=== PATIENT | male | born 1960 ===

== ENCOUNTER 2022-05-05 13:40 | Emergency (ER) | payer MEDICARE, MEDICAID, OTHER ==
[2022-05-05] MEDS ORDERED: Sodium Chloride 0.9% 10 ML Syringe FLUSH PRN (13:54)
[2022-05-05] MEDS ORDERED: Sodium Chloride 0.9% 1,000 ML IV ONE (14:45)
[2022-05-05 17:56] LABS: CHLORIDE,CL 102 mmol/L (98-107); SODIUM,NA 138 mmol/L (136-145)
[2022-05-05 17:58] LABS: ESTIMATED GFR 63 mL/min (>=60)
[2022-05-05 18:01] LABS: ANION GAP 16.5 mEq/L (7-13)
== END 2022-05-05 17:06 | disposition home or self-care (01) ==
LOC: DL.ED 13:40
DX: R42 Dizziness and giddiness (principal); E86.0 Dehydration
CPT/HCPCS: 36415; 70450; 80053; 81001; 83735; 84484; 85025; 86140; 99284; J7030; U0002; 93010; 99283

== ENCOUNTER 2023-10-11 06:06 | Day surgery (SDC) | payer MEDICAID, MEDICARE ==
[~2023-10-11 06:06] MED LIST: Dextrose 5%-0.45% NaCl 1,000 ML IV SCH
[2023-10-11] MEDS ORDERED: fentaNYL 100 MCG/2 ML SDV ONE (06:15)
[2023-10-11] MEDS ORDERED: Midazolam 1 MG/ML 2 ML SDV ONE (06:15)
[2023-10-11] MEDS ORDERED: fentaNYL 100 MCG/2 ML SDV IV ONE ×3 (06:15→07:00)
[2023-10-11] MEDS ORDERED: Midazolam 1 MG/ML 2 ML SDV IV ONE ×6 (06:15→07:08)
== END 2023-10-11 08:30 | disposition home or self-care (01) ==
LOC: DL.ENDO 06:06
PROVIDERS: ATTEND Internal Medicine Gastroenterology
DX: Z12.11 Encounter for screening for malignant neoplasm of colon (principal); D12.4 Benign neoplasm of descending colon; K21.9 Gastro-esophageal reflux disease without esophagitis; J45.20 Mild intermittent asthma, uncomplicated; E66.01 Morbid (severe) obesity due to excess calories; Z68.41 Body mass index [BMI] 40.0-44.9, adult; E78.00 Pure hypercholesterolemia, unspecified; F17.290 Nicotine dependence, other tobacco product, uncomplicated
CPT/HCPCS: J2250; J3010; J7042

== ENCOUNTER 2023-11-05 02:47 | Emergency (ER) | payer MEDICARE ==
[2023-11-05] MEDS ORDERED: Succinylcholine 200 MG/10 ML MDV IV ONE (03:01)
[2023-11-05] MEDS ORDERED: Etomidate 2 MG/ML 10 ML SDV IV ONE (03:01)
[2023-11-05] MEDS ORDERED: Vancomycin 2 GM in Sodium Chloride 0.9% 500 ML IV ONE (03:09)
[2023-11-05] MEDS ORDERED: Diphtheria,Pertussis(Acell),Tetanus Vaccine 0.5 ML Syringe IM ONE (03:09)
[2023-11-05] MEDS ORDERED: Piperacillin/Tazobactam 4.5 GM in Sodium Chloride 0.9% 100 ML IV ONE (03:09)
[2023-11-05] MEDS ORDERED: Lactated Ringers 1,000 ML IV SCH ×2 (03:15→04:00)
[2023-11-05 03:23] LABS: HEMOGLOBIN 14.1 g/dL (14.0-18.0); MEAN CORPUSCULAR HEMOGLOBIN 30.2 pg (27.0-34.0); MEAN CORPUSCULAR VOLUME 94.2 fL (80-100); PLATELET COUNT,PLT 282 10^3/uL (150-450); RED BLOOD CELL COUNT 4.67 10^6/uL (4.6-6.2); WHITE BLOOD CELL COUNT,WBC 13.7 10^3/uL (5.0-10.0)
[2023-11-05 03:27] LABS: BASOPHILS PERCENT AUTO 0.4 % (0.0-1.0); EOSINOPHILS PERCENT AUTO 2.8 % (1.0-3.0); LYMPHOCYTES PERCENT AUTO 26.3 % (20.5-50.1); MONOCYTES PERCENT AUTO 8.9 % (2-8); NEUTROPHILS PERCENT AUTO 61.6 % (42.2-75.2)
[2023-11-05] MEDS ORDERED: fentaNYL 500 MCG in Sodium Chloride 0.9% 50 ML IV SCH (03:30)
[2023-11-05] MEDS ORDERED: propofoL 100 ML IV SCH (03:30)
[2023-11-05 03:34] LABS: A/G RATIO 0.88; ALANINE AMINOTRANSFERASE,ALT 26 U/L (16-63); ALBUMIN 2.9 g/dL (3.4-5.0); ALKALINE PHOSPHATASE 81 U/L (46-116); ANION GAP 16.2 mEq/L (7-13); ASPARTATE AMNIOTRANSFERASE,AST 14 U/L (15-37); BILIRUBIN TOTAL 0.2 mg/dL (0.2-1.0); BLOOD UREA NITROGEN,BUN 19 mg/dL (7-18); CALCIUM 7.9 mg/dL (8.5-10.1); CARBON DIOXIDE,CO2 21 mmol/L (21-32); CHLORIDE,CL 106 mmol/L (98-107); CREATININE 1.27 mg/dL (0.70-1.30); ESTIMATED GFR 64 mL/min (>=60); ETHANOL BLOOD MEDICAL < 3 mg/dL (0); GLUCOSE RANDOM 220 mg/dL (70-99); MAGNESIUM 1.9 mg/dL (1.8-2.4); POTASSIUM,K 4.2 mmol/L (3.5-5.1); PROTEIN TOTAL,TP 6.2 g/dL (6.4-8.2); SODIUM,NA 139 mmol/L (136-145)
[2023-11-05 03:35] LABS: O2 DELIVERY DEVICE RESUSCITATION BAG
[2023-11-05 03:36] LABS: BASE EXCESS ARTERIAL -5 mmol/L ((-2)-(+3)); BICARBONATE,ARTERIAL 21.4 mmol/L (22-26); O2 SATURATION ARTERIAL 100 % (95-100); PCO2 ARTERIAL 48 mmHg (35-45); PH,ARTERIAL 7.28 (7.35-7.45); PO2 ARTERIAL 543 mmHg (70-100)
[2023-11-05 03:37] LABS: ALLEN TEST positive
[2023-11-05 04:05] LABS: EOSINOPHILS PERCENT MAN 1 % (1-3); LYMPHOCYTES PERCENT MAN 25 % (20-50); MONOCYTES PERCENT MAN 4 % (2-8); SEG NEUTROPHILS PERCENT MAN 70 % (42-75)
== END 2023-11-05 04:36 ==
LOC: DL.ED 02:47
DX: T22.391A Burn of third degree of multiple sites of right shoulder and upper limb, except wrist and hand, initial encounter (principal); T22.392A Burn of third degree of multiple sites of left shoulder and upper limb, except wrist and hand, initial encounter; T21.21XA Burn of second degree of chest wall, initial encounter; S91.311A Laceration without foreign body, right foot, initial encounter; S71.112A Laceration without foreign body, left thigh, initial encounter; J98.8 Other specified respiratory disorders; Z23 Encounter for immunization; J45.909 Unspecified asthma, uncomplicated; E66.9 Obesity, unspecified; Z79.899 Other long term (current) drug therapy; X00.0XXA Exposure to flames in uncontrolled fire in building or structure, initial encounter
CPT/HCPCS: 12002; 31500; 36415; 36600; 43752; 51702; 71045; 72170; 80053; 80307; 82375; 82803; 83605; 83735; 84484; 85025; 90715; 96365; 96368; 99291; 99291-25; G0390; J0330; J2543; J2704; J3010; J3370; J3490; J7040; J7120